=== PATIENT | female | born 1980 | race American Indian/Alaskan Native ===

== ENCOUNTER 2016-12-23 18:09 | Emergency (ER) | payer BC, MEDICAID ==
[2016-12-23 18:18] VITALS: BMI 49.7
--- NOTE | 2016-12-23 18:20 | ED PDOC ---
Arrival/HPI - General Historian: Patient - General Time Seen by Provider: 12/23/16 18:14 - History of Present Illness Narrative History of Present Illness (Text): 12/23/16 18:15 36 y/o female, pmh including asthma, nkda, c/o lt. shoulder pain x 3 months with no fall or trauma. Pt. stated that her work involving heavy lifting and been using the lt. shoulder, aching pain, aggravated by movement, painful when actively moving the lt. shoulder above her head and no pain when moving by the others, no fall or trauma, no numbness or tingling, no dizziness, no chest pain or shortness of breath, no other medical or psychological complaints. (Arthur Esparza) Past Medical History - Provider Review Nursing Documentation Reviewed: Yes - Past History Past History: No Previous - Infectious Disease Hx of Infectious Diseases: None - Tetanus Immunization Tetanus Immunization: Up to Date - Pulmonary Hx Asthma: Yes - Psychiatric Hx Depression: No Hx Emotional Abuse: No Hx Physical Abuse: No Hx Substance Use: No - Surgical History Hx Orthopedic Surgery: Yes (left foot) - Suicidal Assessment Feels Threatened In Home Enviroment: No Family/Social History - Physician Review Nursing Documentation Reviewed: Yes Family/Social History: Unknown Family HX Hx Alcohol Use: No Hx Substance Use: No Hx Substance Use Treatment: No Allergies/Home Meds Allergies/Adverse Reactions: Allergies No Known Allergies Allergy (Verified 08/23/12 19:09) Review of Systems - Review of Systems Constitutional: absent: Fatigue, Fevers Eyes: absent: Vision Changes ENT: absent: Hearing Changes Respiratory: absent: SOB, Cough Cardiovascular: absent: Chest Pain, Palpitations Gastrointestinal: absent: Abdominal Pain, Nausea, Vomiting Genitourinary Female: absent: Dysuria Musculoskeletal: Arthralgias. absent: Back Pain, Neck Pain, Joint Swelling, Myalgias Skin: absent: Rash, Pruritis, Skin Lesions, Laceration Neurological: absent: Headache, Dizziness Psychiatric: absent: Anxiety, Depression, Suicidal Ideation Physical Exam Pain Distress: Severe Mental Status: Positive for: Alert and Oriented X 3 - Systems Exam Head: Present: Atraumatic, Normocephalic Pupils: Present: PERRL Extroacular Muscles: Present: EOMI Conjunctiva: Present: Normal Mouth: Present: Moist Mucous Membranes Neck: Present: Normal Range of Motion Respiratory/Chest: Present: Clear to Auscultation, Good Air Exchange. No: Respiratory Distress, Accessory Muscle Use Cardiovascular: Present: Regular Rate and Rhythm, Normal S1, S2. No: Murmurs Abdomen: Present: Normal Bowel Sounds. No: Tenderness, Distention, Peritoneal Signs Back: Present: Normal Inspection Upper Extremity: Present: Normal Inspection, Other (Lt. shoulder: +ttp on the lt. anterior shoulder joint line with no swelling or deformity, FROM without limitation but painful when lt. shoulder active extension and no pain with passive movement, sensation intact, motor 5/5, +radial pulse, capillary refill< 2 seconds, neurovascular intact. ). No: Cyanosis, Edema Lower Extremity: Present: Normal Inspection. No: Edema Neurological: Present: GCS=15, CN II-XII Intact, Speech Normal Skin: Present: Warm, Dry, Normal Color. No: Rashes Psychiatric: Present: Alert, Oriented x 3, Normal Insight, Normal Concentration Vital Signs Temp Pulse Resp BP Pulse Ox 12/23/16 21:03 76 18 128/76 97 12/23/16 18:36 98.3 F 72 18 132/104 H 98 Medical Decision Making - RAD Interpretation [employer] Press Operator: Radiologist ED Course and Treatment: I was available for consultation during PA evaluation. The chart reviewed by me , and I agree with disposition. The documented history was done by the physician ranch hand. The documented physical exam was done by the physician ranch hand. The documented procedures were done by the physician ranch hand. (Jason Graham) 12/23/16 18:22 -lt. shoulder xray -toradol IM and percocet -Discharge home with indomethacin, sling, heat compression, follow up with your own pmd and orthopedic within 2 days, return to the ER for any new or worsening signs or symptoms. (Arthur Esparza) - RAD Interpretation Radiology Orders: 12/23/16 18:22 SHOULDER LEFT [RAD] Stat 12/23/16 18:22 SHOULDER LEFT [RAD] Stat no acute fracture or dislocation (Arthur Esparza) - Medication Orders Current Medication Orders: Discontinued Medications Ketorolac Tromethamine (Toradol) 60 mg IM STAT STA Stop: 12/23/16 18:23 Last Admin: 12/23/16 18:43 Dose: 60 mg Oxycodone/Acetaminophen (Percocet 5/325 Mg Tab) 1 tab PO STAT STA Stop: 12/23/16 18:23 Last Admin: 12/23/16 18:44 Dose: 1 tab - PA / CHIEF ANALYTICS OFFICER / Resident Statement MD/DO has reviewed & agrees with the documentation as recorded. Disposition/Present on Arrival - Present on Arrival Any Indicators Present on Arrival: No History of DVT/PE: No History of Uncontrolled Diabetes: No Urinary Catheter: No History of Decub. Ulcer: No History Surgical Site Infection Following: None - Disposition Have Diagnosis and Disposition been Completed?: Yes Disposition Time: 18:22 Patient Plan: Discharge - Disposition Diagnosis: Tendinitis, Chronic pain in shoulder Disposition: HOME/ ROUTINE Condition: IMPROVED Additional Instructions: Discharge home with indomethacin, sling, heat compression, follow up with your own pmd and orthopedic within 2 days, return to the ER for any new or worsening signs or symptoms. Prescriptions: Indomethacin [Indocin] 50 mg PO TID PRN #30 cap PRN Reason: Other Referrals: Marcell Zavala MD [Primary Care Provider] - Follow up with primary Adam Mckeon III, MD [Medical Doctor] - Follow up with primary Forms: WORK NOTE
[2016-12-23] MEDS ORDERED: Oxycodone/Acetaminophen 5/325 mg Tab PO STA (18:22)
[2016-12-23 18:37] VITALS: RESP 18; TEMP 98.3
[2016-12-23 21:04] VITALS: BP 128/76; PULSE 76; O2SAT 97
--- NOTE | 2016-12-24 08:24 | RAD ---
PROCEDURE: Radiographs of the Left Shoulder HISTORY: Left shoulder pain x 3 months COMPARISON: No prior. FINDINGS: BONES: Bone alignment and mineralization are normal. No acute fracture. JOINTS: Normal. Glenohumeral and acromioclavicular joints preserved. No osteoarthritis. SOFT TISSUES: Normal. OTHER FINDINGS: None. IMPRESSION: No acute fracture or dislocation.
== END 2016-12-23 21:05 | disposition home or self-care (01) ==
LOC: ED 18:09
DX: G89.29 Other chronic pain (principal); M25.512 Pain in left shoulder; M75.92 Shoulder lesion, unspecified, left shoulder
CPT/HCPCS: 73030; 96372; 99285; J1885